=== PATIENT | female | born 1995 | race Caucasian/White ===

== ENCOUNTER 2017-06-07 16:31 | Emergency (ER) | payer OTHER ==
[~2017-06-07] VITALS: Ht 172.7 cm; Wt 55.0 kg
[~2017-06-07 16:31] MED LIST: AUGMENTIN875TAB PO; CIPROFLOXACN500 MG PO; IBUPROFEN600 MG PO; LORTAB 10 PO; NO; ULTRAM50 M1 PO
[2017-06-07 16:50] VITALS: BP 121/57
[2017-06-07] MEDS ORDERED: AUGMENTIN500TAB PO (17:02)
[2017-06-07] MEDS ORDERED: CORTISPORIN OTI10 M2 AU (17:02)
== END 2017-06-07 17:22 | disposition home or self-care (01) | DRG 153 ==
LOC: ED 16:31
DX: H66.91 Otitis media, unspecified, right ear (principal); F17.200 Nicotine dependence, unspecified, uncomplicated; H92.01 Otalgia, right ear; J06.9 Acute upper respiratory infection, unspecified; L72.0 Epidermal cyst; R50.9 Fever, unspecified; R05 Cough

== ENCOUNTER 2024-03-30 21:24 | Emergency (ER) | payer OTHER ==
[~2024-03-30] VITALS: Ht 172.7 cm; Wt 66.0 kg
[~2024-03-30 21:24] MED LIST changes: +AUGMENTIN500TAB PO; +CORTISPORIN OTI10 M2 AU; +XANAX0.25 MG PO
[2024-03-30] MEDS ORDERED: KETOROLAC TROMETHAMINE 30 MG/ML SDV IM ONE (22:10)
[2024-03-30] MEDS ORDERED: ACETAMINOPHEN 500 MG TAB PO ONE (22:10)
[2024-03-30] MEDS ORDERED: traMADol HCL 50 MG/TAB PO ONE (22:10)
[2024-03-30 22:20] LABS: URINE BLOOD DIPSTICK Negative (NEGATIVE); URINE COLOR Yellow; URINE GLUCOSE - DIPSTICK Negative (NEGATIVE); URINE KETONE Trace mg/dL (NEGATIVE); URINE LEUK ESTERASE Small (NEGATIVE); URINE NITRITE - DIPSTICK Negative (Negative); URINE PROTEIN - DIPSTICK 30 mg/dL (NEG-TRACE); URINE SPECIFIC GRAVITY >=1.030
[2024-03-30 22:28] LABS: URINE BACTERIA MODERATE hpf; URINE RBC 0-2 RBC/hpf (0-5)
[2024-03-30 22:29] LABS: URINE MUCUS MODERATE hpf (NONE-FEW)
[2024-03-30 22:30] LABS: URINE SQUAMOUS EPITHELIAL CELL FEW EPI/hpf (0-FEW)
[2024-03-30] MEDS ORDERED: VOLTAREN - GENE75 MG PO (23:20)
[2024-03-30 23:50] VITALS: BP 116/72
== END 2024-03-31 | disposition home or self-care (01) ==
LOC: ED 21:24
PROVIDERS: Family Medicine
DX: S39.012A Strain of muscle, fascia and tendon of lower back, initial encounter (principal); F17.200 Nicotine dependence, unspecified, uncomplicated; X58.XXXA Exposure to other specified factors, initial encounter; Z87.81 Personal history of (healed) traumatic fracture